=== PATIENT | male | born 1995 | race Two or more races ===

== ENCOUNTER 2020-09-01 13:43 | Emergency (ER) | payer SELFPAY ==
[~2020-09-01] VITALS: Ht 157.5 cm; Wt 65.8 kg
[2020-09-01 14:00] VITALS: BP 142/88
--- NOTE | 2020-09-01 14:07 | NUR ---
AT BEDSIDE FOR EVAL.
[2020-09-01] MEDS ORDERED: DESO60CR12 TP (15:16)
[2020-09-01] MEDS ORDERED: DIPH50CA4 PO (15:16)
[2020-09-01] MEDS ORDERED: PRED50TA PO (15:16)
--- NOTE | 2020-09-01 15:24 | NUR ---
Patient discharged to home in stable condition. Written and verbal after care instructions given. Patient verbalizes understanding of instruction.
== END 2020-09-01 15:25 | disposition home or self-care (01) ==
LOC: ER 13:49
DX: S20.211A Contusion of right front wall of thorax, initial encounter (principal); L50.9 Urticaria, unspecified; Z79.899 Other long term (current) drug therapy; W11.XXXA Fall on and from ladder, initial encounter; Y93.89 Activity, other specified; Y92.89 Other specified places as the place of occurrence of the external cause; Y99.8 Other external cause status
CPT/HCPCS: 71100-TC

== ENCOUNTER 2020-09-20 17:27 | Emergency (ER) | payer SELFPAY ==
[~2020-09-20] VITALS: Ht 157.5 cm; Wt 68.0 kg
[~2020-09-20 17:27] MED LIST: DESO60CR12 TP; DIPH50CA4 PO; PRED50TA PO
[2020-09-20 17:31] VITALS: BP 131/78
[2020-09-20] MEDS ORDERED: FAMOTIDINE (20 MG) 20 MG TABLET ONE (17:52)
[2020-09-20] MEDS ORDERED: predniSONE 20 MG TABLET ONE (17:52)
[2020-09-20] MEDS ORDERED: diphenhydrAMINE HCL 25 MG CAPSULE ONE (17:52)
[2020-09-20] MEDS ORDERED: predniSONE 20 MG TABLET PO ONE (18:00)
[2020-09-20] MEDS ORDERED: FAMOTIDINE (20 MG) 20 MG TABLET PO ONE (18:00)
[2020-09-20] MEDS ORDERED: DIPHENHYDRAMINE HCL 12.5 MG/5 ML UDC PO ONE (18:00)
[2020-09-20] MEDS ORDERED: FAMO-131 PO (18:20)
[2020-09-20] MEDS ORDERED: CLOT15CR27 TP (18:20)
[2020-09-20] MEDS ORDERED: DIPH25CA83 PO (18:20)
[2020-09-20] MEDS ORDERED: PRED20TA PO (18:20)
--- NOTE | 2020-09-20 18:36 | NUR ---
Patient discharged to home in stable condition. Written and verbal after care instructions given. Patient verbalizes understanding of instruction.Pt ambulatory with a steady gait
== END 2020-09-20 18:37 | disposition home or self-care (01) ==
LOC: ER 17:29
DX: L24.9 Irritant contact dermatitis, unspecified cause (principal); Z79.899 Other long term (current) drug therapy
CPT/HCPCS: 99284; J7512; Q0163